=== PATIENT | male | born 1990 | race American Indian/Alaskan Native ===

== ENCOUNTER 2019-03-08 01:41 | Emergency (ER) | payer SELFPAY ==
--- NOTE | 2019-03-08 02:23 | Emergency Department Report ---
ED General Adult HPI - General Chief complaint: Extremity Injury, Upper Stated complaint: LEFT SHOULDER/ARM PAIN Time Seen by Provider: 03/08/19 02:14 Source: patient Mode of arrival: Ambulatory Limitations: No Limitations - History of Present Illness Initial comments: Patient is a 20-year-old -[place] male with history of cervical spine herniation hypertension and obesity who presents with sudden onset left arm pain and numbness radiating A from left posterior lateral neck 2 fingertips patient denies fall injury or trauma states he did not sleep his arm as he describes symptoms as my arm is heaviness and numbness, range of motion is intact, Onset/Timin -: hour(s) Location: upper extremity Radiation: extremity, distal Severity scale (0 -10): 5 Quality: burning, other (tingling 0) Consistency: constant Improves with: none Worsens with: none Associated Symptoms: weakness (left Arm ) Treatments Prior to Arrival: none - Related Data Previous Rx's Medication Instructions Recorded Last Taken Type Cyclobenzaprine [Flexeril] 10 mg PO TID PRN #30 tablet 03/08/19 Unknown Rx Menthol/Camphor [[place] Scooba 1 applicatio TP QID PRN #1 tube 03/08/19 Unknown Rx Ointment] Naproxen [Naprosyn TAB] 500 mg PO BID #30 tablet 03/08/19 Unknown Rx Allergies Allergy/AdvReac Type Severity Reaction Status Date / Time No Known Allergies Allergy Unverified 03/08/19 04:24 ED Review of Systems ROS: Stated complaint: LEFT SHOULDER/ARM PAIN Other details as noted in HPI Constitutional: denies: chills, fever, malaise Eyes: denies: eye pain, eye discharge, vision change ENT: denies: ear pain, throat pain Respiratory: denies: cough, shortness of breath, wheezing Cardiovascular: denies: chest pain, palpitations Endocrine: no symptoms reported Gastrointestinal: denies: abdominal pain, nausea, vomiting, diarrhea Genitourinary: denies: urgency, dysuria Musculoskeletal: myalgia (left arm ). denies: back pain, joint swelling, arthralgia Skin: denies: rash, lesions Neurological: denies: headache, weakness, paresthesias Psychiatric: denies: anxiety, depression Hematological/Lymphatic: denies: easy bleeding, easy bruising ED Past Medical Hx - Past Medical History Previous Medical History?: No Hx Hypertension: Yes Additional medical history: sleep apnea, "fluid build-up" - Surgical History Past Surgical History?: No - Social History Smoking Status: Never Smoker - Medications Home Medications: Home Medications Medication Instructions Recorded Confirmed Last Taken Type Cyclobenzaprine [Flexeril] 10 mg PO TID PRN #30 tablet 03/08/19 Unknown Rx Menthol/Camphor [[place] Sco[place] 1 applicatio TP QID PRN #1 tube 03/08/19 Unknown Rx Ointment] Naproxen [Naprosyn TAB] 500 mg PO BID #30 tablet 03/08/19 Unknown Rx ED Physical Exam - General Limitations: No Limitations General appearance: alert, in no apparent distress - Head Head exam: Present: normocephalic, normal inspection - Eye Eye exam: Present: normal appearance, PERRL, EOMI. Absent: conjunctival injection, nystagmus Pupils: Present: normal accommodation - ENT ENT exam: Present: normal orophraynx, mucous membranes moist, TM's normal bilaterally, normal external ear exam - Neck Neck exam: Present: normal inspection, tenderness (left lateral neck muscle tederness to deep palpation), full ROM. Absent: meningismus, lymphadenopathy, thyromegaly - Expanded Neck Exam Expanded Neck exam: Present: tenderness (no posterior vertebral point tenderness rom intact unrestricted to all george, ). Absent: midline deformity, anterior neck swelling, thyroid mass, carotid bruit, tracheal deviation - Respiratory Respiratory exam: Present: normal lung sounds bilaterally. Absent: respiratory distress, wheezes, rales, rhonchi, stridor, chest wall tenderness, accessory muscle use, prolonged expiratory - Cardiovascular Cardiovascular Exam: Present: regular rate, normal rhythm, normal heart sounds. Absent: systolic murmur, diastolic murmur, rubs, gallop - GI/Abdominal GI/Abdominal exam: Present: soft, normal bowel sounds. Absent: distended, tenderness, bruit, hernia - Rectal Rectal exam: Present: deferred - exam: Present: other (deferred) - Extremities Exam Extremities exam: Present: normal inspection, full ROM, normal capillary refill, other. Absent: tenderness, pedal edema, joint swelling, calf tenderness - Expanded Upper Extremity Exam Left Shoulder Exam: Present: full ROM, other (numbness left anterior shoulder, distal pulses +2 bilat, retail assistant 5/5 right , 4/5 left rom intact ). Absent: tenderness, swelling, abrasion, laceration, ecchymosis, deformity, crepidus, dislocation, erythema, tenderness over AC joint Upper Arm exam: Present: normal inspection, full ROM. Absent: tenderness, swelling, abrasion, laceration, ecchymosis, deformity, crepidus, dislocation, erythema Elbow exam: Present: normal inspection, full ROM. Absent: tenderness, swelling, abrasion, laceration, ecchymosis, deformity, crepidus, dislocation, erythema, effusion, pain w/ pronation/supination, tenderness over radial head Forearm Wrist exam: Present: normal inspection, full ROM. Absent: tenderness, swelling, abrasion, laceration, ecchymosis, deformity, crepidus, dislocation, erythema, tenderness over anatomical snuff box, pain with axial thumb loading Hand Wrist exam: Present: normal inspection, full ROM. Absent: tenderness, swelling, abrasion, laceration, ecchymosis, deformity, crepidus, dislocation, erythema, amputation, nail avulsion, subungual hematoma Neuro motor exam: Present: wrist extension intact, thumb opposition intact, thumb IP flexion intact, thumb adduction intact, fingers 2-5 abduction intact Neurosensory exam: Present: 2-point discrimination, radial nerve intact, ulnar nerve intact, median nerve intact Vascular: Present: normal capillary refill, radial pulse, brachial pulse, ulnar pulse. Absent: vascular compromise, pulse deficit radial art, pulse deficit ulnar art, pulse deficit brachial art - Back Exam Back exam: Present: normal inspection, full ROM. Absent: tenderness, CVA tenderness (R), CVA tenderness (L), muscle spasm, paraspinal tenderness, vertebral tenderness, rash noted - Neurological Exam Neurological exam: Present: alert, oriented X3, CN II-XII intact, normal gait. Absent: motor sensory deficit, reflexes normal - Expanded Neurological Exam Expanded Neurological exam: Absent: memory loss-remote event, memory loss-recent event, tremor Patient oriented to: Present: person, place, time Cranial nerves: EOM's Intact: Normal, Gag Reflex: Normal, Tongue Deviation: Normal, Nystagmus: Normal, Facial Sensation: Normal Cerebellar function: Finger to Nose: Normal, Heel to [place]: Normal, Romberg: Normal Upper motor neuron: Mao Neglect: Normal, Pronator Drift: Normal, Babinski Sign: Normal, Sensory Extinction: Normal Sensory exam: Upper Extremity Light Touch: Abnormal Left, Upper Extremity Pin Prick: Abnormal Left, Upper Extremity Temperature: Abnormal Left, UE 2 Point Discrimination: Abnormal Left, Lower Extremity Light Touch: Normal, Lower Extremity Pin Prick: Normal, Lower Extremity Temperature: Normal, LE 2 Point Discrimination: Normal Motor strength exam: RUE: 5, LUE: 4, RLE: 5, LLE: 5 DTR: bicep (R): 2+, bicep (L): 2+, tricep (R): 2+, tricep (L): 2+, ankle (R): 2+, ankle (L): 2+ Best Eye Response ([place]): (4) open spontaneously Best Motor Response (Adriane): (6) obeys commands Best Verbal Response ([place]): (5) oriented [place] Total: 15 - Psychiatric Psychiatric exam: Present: normal affect, normal mood - Skin Skin exam: Present: warm, dry, intact, normal color. Absent: rash ED Course Vital Signs 03/08/19 01:43 Temperature 98.3 F Pulse Rate 81 Respiratory 18 Rate Blood Pressure 150/89 O2 Sat by Pulse 98 Oximetry ED Medical Decision Making - Radiology Data Radiology results: report reviewed, image reviewed C Spine Xray is normal no fracture no soft tissue abnormality, left shoulder xray normal no fracture no soft tissue abnormality - Medical Decision Making C Spine Xray is normal no fracture no soft tissue abnormality, left shoulder xray normal no fracture no soft tissue abnormality, pt now refuses ct head, states symptoms are improve, follow up exam: rom intact , retail assistant equal, distal pulses intact there is no weakness no deformity, plan: NSAIDs, Muscle relaxants, analgesic balm pt will follow up with orthopedic surgery and neurology in 2-3 days, will return to ed if symptoms worsen or not improving. pt dc'd to self in stable condition at this time. Critical care attestation.: If time is entered above; I have spent that time in minutes in the direct care of this critically ill patient, excluding procedure time. ED Disposition Clinical Impression: Radicular pain in left arm Arm pain Qualifiers: Laterality: left Qualified Code(s): M79.602 - Pain in left arm Disposition: DC-01 TO HOME OR SELFCARE Is pt being admited?: No Does the pt Need Aspirin: No Condition: Stable Instructions: Paresthesia (ED) Prescriptions: Cyclobenzaprine [Flexeril] 10 mg PO TID PRN #30 tablet PRN Reason: Muscle Spasm Naproxen [Naprosyn TAB] 500 mg PO BID #30 tablet Menthol/Camphor [[place] Scooba Ointment] 1 applicatio TP QID PRN #1 tube PRN Reason: pain Referrals: [facility] MD TENA [Primary Care Provider] - 3-5 Days BRITTANY VALDIVIA MD [Staff Physician] - 3-5 Days OLY LUTZ MD [Referring] - 3-5 Days Forms: Work/School Release Form(ED) Time of Disposition: 04:41
--- NOTE | 2019-03-08 02:43 | XRay Report ---
LEFT SHOULDER 3 VIEWS INDICATION / CLINICAL INFORMATION: Pain in left shoulder. COMPARISON: None available. FINDINGS: BONES and JOINT(S): No acute fracture or subluxation. No significant arthritis. SOFT TISSUES: No significant abnormality. ADDITIONAL FINDINGS: None. IMPRESSION: No acute findings. Signer Name: Mejia Kerr MD Signed: 03/08/2019 2:39 AM Workstation Name: [id number]
--- NOTE | 2019-03-08 02:45 | XRay Report ---
CERVICAL SPINE 3 VIEWS INDICATION: Neck pain. COMPARISON: No relevant prior imaging study available. FINDINGS: VERTEBRAE: No acute fracture. Normal alignment. DISC SPACES: No significant abnormality. FACET JOINTS: No significant abnormality. SOFT TISSUES: No significant abnormality. ADDITIONAL FINDINGS: No additional significant findings. IMPRESSION: No acute findings. Signer Name: Mejia Kerr MD Signed: 03/08/2019 2:40 AM Workstation Name: [id number]
[2019-03-08] MEDS ORDERED: DECADRON IM ONE (03:29)
[2019-03-08] MEDS ORDERED: IBUPROFEN PO ONE (03:30)
[2019-03-08] MEDS ORDERED: DECADRON ONE (03:36)
[2019-03-08] MEDS ORDERED: IBUPROFEN ONE (03:36)
[2019-03-08 04:52] VITALS: BP 135/86
== END 2019-03-08 04:53 | disposition home or self-care (01) ==
LOC: ED 01:41
DX: M79.602 Pain in left arm (principal); I10 Essential (primary) hypertension; G47.30 Sleep apnea, unspecified; Z79.899 Other long term (current) drug therapy
CPT/HCPCS: 72040; 73030; 96372; 99283; J1100

== ENCOUNTER 2022-03-16 07:11 | Emergency (ER) | payer SELFPAY ==
--- NOTE | 2022-03-16 08:29 | XRay Report ---
CHEST 2 VIEWS INDICATION / CLINICAL INFORMATION: Chest Pain. COMPARISON: None available. FINDINGS: SUPPORT DEVICES: None. HEART / MEDIASTINUM: No significant abnormality. LUNGS / PLEURA: No significant pulmonary or pleural abnormality. No pneumothorax. ADDITIONAL FINDINGS: No significant additional findings. IMPRESSION: 1. No acute findings. Signer Name: Cordelia Huizar MD Signed: 03/16/2022 8:25 AM Workstation Name: [email or web address]
[2022-03-16 08:43] LABS: Bacteria,Urine 4+ /HPF (Negative); Mucus,Urine 3+ /HPF; RBC,Urine < 1.0 /HPF (0.0-6.0)
[2022-03-16 08:54] LABS: Alanine Aminotransferase 43 units/L (7-56); Albumin 4.6 g/dL (3.9-5); BUN/Creatinine Ratio 10; Blood Urea Nitrogen 11 mg/dL (9-20); Calcium 9.4 mg/dL (8.4-10.2); Hemolysis Index 1
[2022-03-16] MEDS ORDERED: IBUPROFEN 600 MG TAB PO ONE (08:56)
[2022-03-16] MEDS ORDERED: ACETAMINOPHEN 325 MG TAB PO ONE (08:56)
[2022-03-16] MEDS ORDERED: PANTOPRAZOLE 40 MG TAB PO ONE (08:56)
--- NOTE | 2022-03-16 09:02 | Emergency Department Report ---
ED General Adult HPI - General Chief complaint: Chest Pain Stated complaint: Chest wall pain Time Seen by Provider: 03/16/22 08:11 Source: patient, RN notes reviewed, old records reviewed Mode of arrival: Ambulatory Limitations: No Limitations - History of Present Illness Initial comments: The patient was evaluated in the emergency department for symptoms described in the history of present illness. He/she was evaluated in the context of the global COVID-19 pandemic, which necessitated consideration that the patient might be at risk for infection with the virus that causes COVID-19. Institutional protocols and algorithms that pertain to the evaluation of patients at risk for COVID-19 are in a state of rapid change based on information released by regulatory bodies including the CDC and federal and state organizations. These policies and algorithms were followed during the patient's care in the emergency department. Please note that these policies, procedures and recommendations changed on a rapid basis. This is a 31-year-old gentleman who is right-hand dominant, with a history of body mass index of 32.5, possible hypertension and possible reflux/GERD, and possible cervical radiculopathy. He presents to the department today with a complaint of left-sided chest wall pain which is present since last night. He states the pain does not radiate anywhere. The pain does not radiate to the back, arms or neck. He denies vomiting, diaphoresis and exertional shortness of breath. He denies travel, surgery, immobilization, DVT and pulmonary embolism risk factors. He indicates no family history of DVT, pulmonary embolism, CAD, or [place]. His chest wall pain is aching, and increases with palpation and decreases with rest. The patient reports he has not taken anything for pain. The patient denies recreational drug use, tobacco consumption, or alcohol consumption -: days(s) Location: chest Radiation: non-radiation Severity scale (0 -10): 8 Consistency: other Improves with: other Worsens with: other Associated Symptoms: denies other symptoms - Related Data Previous Rx's Medication Instructions Recorded Last Taken Type Acetaminophen [Non-Aspirin Extra 500 mg PO Q6HR PRN #30 tablet 03/16/22 Unknown Rx Strength] Menthol/Camphor [[place] 1 applicatio TP QID PRN #1 tube 03/16/22 Unknown Rx Ointment] Naproxen [Naprosyn TAB] 500 mg PO BID #30 tablet 03/16/22 Unknown Rx Sulfamethoxazole/Trimethoprim 1 each PO BID #10 tab 03/16/22 Unknown Rx [Bactrim 400-80 mg Tablet] Allergies Allergy/AdvReac Type Severity Reaction Status Date / Time No Known Allergies Allergy Unverified 03/08/19 04:24 ED Review of Systems ROS: Stated complaint: CHEST PAIN/NO FEELING IN LT ARM Other details as noted in HPI Comment: All other systems reviewed and negative Cardiovascular: chest pain ED Past Medical Hx - Past Medical History Hx Hypertension: Yes Additional medical history: sleep apnea, "fluid build-up" - Social History Smoking Status: Never Smoker - Medications Home Medications: Home Medications Medication Instructions Recorded Confirmed Last Taken Type Acetaminophen [Non-Aspirin Extra 500 mg PO Q6HR PRN #30 tablet 03/16/22 Unknown Rx Strength] Menthol/Camphor [[place] 1 applicatio TP QID PRN #1 tube 03/16/22 Unknown Rx Ointment] Naproxen [Naprosyn TAB] 500 mg PO BID #30 tablet 03/16/22 Unknown Rx Sulfamethoxazole/Trimethoprim 1 each PO BID #10 tab 03/16/22 Unknown Rx [Bactrim 400-80 mg Tablet] ED Physical Exam - General Limitations: No Limitations General appearance: alert, in no apparent distress, obese - Head Head exam: Present: atraumatic, normocephalic - Eye Eye exam: Present: normal appearance, EOMI. Absent: nystagmus - ENT ENT exam: Present: normal exam, normal orophraynx, mucous membranes moist, normal external ear exam - Neck Neck exam: Present: normal inspection, full ROM. Absent: tenderness, meningismus - Respiratory Respiratory exam: Present: normal lung sounds bilaterally, chest wall tenderness. Absent: respiratory distress, wheezes, rales, rhonchi, stridor, decreased breath sounds - Cardiovascular Cardiovascular Exam: Present: regular rate, normal rhythm, normal heart sounds. Absent: bradycardia, tachycardia, irregular rhythm, systolic murmur, diastolic murmur, rubs, gallop - GI/Abdominal GI/Abdominal exam: Present: soft. Absent: distended, tenderness, guarding, rebound, rigid, pulsatile mass - Rectal Rectal exam: Present: deferred - Extremities Exam Extremities exam: Present: normal inspection, full ROM, normal capillary refill, other (2+ pulses noted in the bilateral upper and lower extremities. There is no palpable cord. negative Homans sign. Muscular compartments are soft. The pelvis is stable.). Absent: pedal edema, calf tenderness - Back Exam Back exam: Present: normal inspection. Absent: tenderness, CVA tenderness (R), CVA tenderness (L), paraspinal tenderness, vertebral tenderness - Neurological Exam Neurological exam: Present: alert, oriented X3, normal gait, reflexes normal, other (No facial droop. Tongue midline. Extraocular movements intact bilaterally. Facial sensation intact to light touch in V1, V2, V3 distribution bilaterally. 5 and a 5 strength in 4 extremities. Sensation intact to light touch in 4 extremities.). Absent: motor sensory deficit - Psychiatric Psychiatric exam: Present: normal affect, normal mood - Skin Skin exam: Present: warm, dry, intact, normal color. Absent: rash ED Course Vital Signs 03/16/22 03/16/22 03/16/22 07:46 10:42 10:59 Temperature 98.9 F Pulse Rate 80 64 Respiratory 14 18 Rate Blood Pressure 133/92 111/63 [Right] O2 Sat by Pulse 95 97 Oximetry O2 Sat by Pulse 100 Oximetry [ Digit-Finger] - Reevaluation(s) Reevaluation #1: 03/16/22 10:40 Patient is seen and examined. He is sleeping and in no acute distress. His laboratory studies are unremarkable. For unclear reasons, a urinalysis was ordered prior to my personal evaluation. It is asymptomatic with bacteriuria. Patient may be discharged with supportive care. Would not initiate antibiotics unless the patient develops irritative or obstructive urinary symptoms - Pulse Oximetry Interpretation Digit-Finger Initial Pulse Oximetry Readin O2 Sat by Pulse Oximetry: 100 Actions Taken: none ED Medical Decision Making - Lab Data Result diagrams: 03/16/22 08:02 03/16/22 08:02 Vital Signs 03/16/22 07:46 Temperature 98.9 F Pulse Rate 80 Respiratory 14 Rate Blood Pressure 133/92 [Right] O2 Sat by Pulse 95 Oximetry Lab Results 03/16/22 03/16/22 03/16/22 Range/Units 08:02 08: Unknown WBC 6.8 (4.5-11.0) K/mm3 RBC 4.40 (3.65-5.03) M/mm3 Hgb 13.1 (11.8-15.2) gm/dl Hct 39.1 (35.5-45.6) % MCV 89 (84-94) fl MCH 30 (28-32) pg MCHC 34 (32-34) % RDW 14.9 (13.2-15.2) % Plt Count 290 (140-440) K/mm3 Lymph % (Auto) 29.3 (13.4-35.0) % [place] % (Auto) 12.4 H (0.0-7.3) % Eos % (Auto) 2.7 (0.0-4.3) % Baso % (Auto) 0.9 (0.0-1.8) % Lymph # (Auto) 2.0 (1.2-5.4) K/mm3 [place] # (Auto) 0.8 (0.0-0.8) K/mm3 Eos # (Auto) 0.2 (0.0-0.4) K/mm3 Baso # (Auto) 0.1 (0.0-0.1) K/mm3 Add Manual Diff Complete Seg Neutrophils % 54.7 (40.0-70.0) % Seg Neutrophils # 3.7 (1.8-7.7) K/mm3 Sodium 141 (137-145) mmol/L Potassium 3.7 (3.6-5.0) mmol/L Chloride 104.9 (98-107) mmol/L Carbon Dioxide 24 (22-30) mmol/L Anion Gap 16 mmol/L BUN 11 (9-20) mg/dL Creatinine 1.1 (0.8-1.3) mg/dL Estimated GFR > 60 ml/min BUN/Creatinine Ratio 10 % Glucose 96 (75-100) mg/dL Calcium 9.4 (8.4-10.2) mg/dL Total Bilirubin 0.30 (0.1-1.2) mg/dL AST 31 (5-40) units/L ALT 43 (7-56) units/L Alkaline Phosphatase 70 (35-129) units/L Troponin T < 0.010 (0.00-0.029) ng/mL Total Protein 7.4 (6.3-8.2) g/dL Albumin 4.6 (3.9-5) g/dL Albumin/Globulin Ratio 1.6 % Urine Color Yellow (Yellow) Urine Turbidity Hazy (Clear) Urine pH 6.0 (5.0-7.0) Ur Specific [place] 1.020 (1.003-1.030) Urine Protein 30 mg/dl (Negative) mg/dL Urine Glucose (UA) Negative (Negative) mg/dL Urine Ketones 1+ (Negative) mg/dL Urine Blood Negative (Negative) Urine Nitrite Negative (Negative) Ur Reducing Substances Not Reportable Urine Bilirubin 1+ (Negative) Urine Ictotest Negative (Negative) Urine Urobilinogen 4.0 (<2.0) mg/dL Ur Leukocyte Esterase 1.0 (Negative) Urine WBC (Auto) 3.0 (0.0-6.0) /HPF Urine RBC (Auto) < 1.0 (0.0-6.0) /HPF U Epithel Cells (Auto) 1.0 (0-13.0) /HPF Urine Bacteria (Auto) 4+ (Negative) /HPF Urine Mucus 3+ /HPF - EKG Data -: EKG Interpreted by Ct EKG shows normal: sinus rhythm Rate: normal - EKG Data When compared to previous EKG there are: previous EKG unavailable 03/16/22 08:58 The EKG is interpreted at 08: 00 Sinus rhythm, 72 bpm. Normal axis, normal intervals, normal P wave axis. This is an unremarkable EKG. This is not a STEMI - Radiology Data Radiology results: pending, report reviewed, image reviewed CHEST 2 VIEWS INDICATION / CLINICAL INFORMATION: Chest Pain. COMPARISON: None available. FINDINGS: SUPPORT DEVICES: None. HEART / MEDIASTINUM: No significant abnormality. LUNGS / PLEURA: No significant pulmonary or pleural abnormality. No pneumothorax. ADDITIONAL FINDINGS: No significant additional findings. IMPRESSION: 1. No acute findings. Signer Name: Cordelia Huizar MD Signed: 03/16/2022 7:25 AM Workstation Name: [id number] - Medical Decision Making Differential diagnosis, including but not limited to: Costochondritis, cervical radiculopathy, pneumothorax Assessment and plan: 31-year-old gentleman, who is not currently tachycardic, t achypneic or hypoxic, who denies DVT and pulmonary embolism risk factors, who is low risk by Wells criteria for pulmonary embolism, EKG unremarkable, troponin negative x1 in the context of 1 day of symptoms; pain present for greater than 8 hours, reproducible, troponin negative x1, as per the [employer] clinical policy, acute myocardial infarction is ruled out. Patient also PERC negative. Patient has equal pulses in the upper and lower extremities, no pulsatile abdominal mass, and an unremarkable x-ray of the chest, therefore, aortic disease is very unlikely. Patient at low risk for major adverse cardiac event as per heart score. Patient has reproducible chest wall pain and tenderness. His chest x-ray is unremarkable. His laboratory studies are unremarkable. Patient makes no complaint of pain radiating down his left upper extremity to myself. He has an unremarkable and benign neurologic examination, with no spinal tenderness or step-offs. Prior charts indicate that this patient may have a history of cervical radiculopathy. Weightbearing as tolerated, Tylenol, Motrin, weight loss, physical therapy, outpatient follow-up. He is medicated appropriately for his symptoms. Return precautions are reviewed. All questions answered Critical care attestation.: If time is entered above; I have spent that time in minutes in the direct care of this critically ill patient, excluding procedure time. ED Disposition Clinical Impression: Chest wall pain, Bacteriuria Disposition: 01 HOME / SELF CARE / HOMELESS Is pt being admited?: No Does the pt Need Aspirin: No Condition: Good Instructions: Cervical Radiculopathy, Costochondritis Additional Instructions: Rest, avoid heavy lifting, and strenuous physical activities. Alternate ice packs and heat packs as needed for physical pain. Follow-up with a primary care doctor within the next 7 to 10 days. Recommend exercise as tolerated, weight loss as tolerated, avoid consumption of alcohol, tobacco, heavy and spicy foods. Take the pain medication as needed and directed. Patient most likely has costochondritis, which is irritation/inflammation of the muscles and contact the tissue of the chest wall, with possible superimposed cervical radiculopathy, which refers to pinched nerve in the neck. Physical therapy may assist with this, patient should follow-up with a primary care doctor for referral to outpatient physical therapy. Patient may also benefit from complementary therapy, such as massage, and/or acupuncture. May take the prescribed pain medications as needed and directed. Please return to the emergency room right away with new pain, worsened pain, ella ration of pain, projectile vomiting, change in mental status, confusion, inability tolerate liquid feeds, new, worsened or different symptoms not present on the initial emergency room evaluation Urinalysis demonstrated bacteria in the urine, without corroborating urinary symptoms. At this point in time, this constitutes asymptomatic bacteriuria. If the patient develops pain with urination, urinary frequency, urinary hesitancy, please take the antibiotics as directed. If patient does not develop any urinary symptoms and does not have any genital or testicular pain, antibiotics are not necessary, and the patient does not need to fill the Bactrim/antibiotic prescription. In general, the patient should always practice safe sex practices with a condom with partner Prescriptions: Sulfamethoxazole/Trimethoprim [Bactrim 400-80 mg Tablet] 1 each PO BID #10 tab Naproxen [Naprosyn TAB] 500 mg PO BID #30 tablet Acetaminophen [Non-Aspirin Extra Strength] 500 mg PO Q6HR PRN #30 tablet PRN Reason: Pain , Severe (7-10) Menthol/Camphor [[place] Ointment] 1 applicatio TP QID PRN #1 tube PRN Reason: pain Referrals: [facility] [Provider Group] - 3-5 Days Forms: Work/School Release Form(ED) Heart Score - HEART Score History: Slightly suspicious EKG: Normal Age: < 45 Risk factors: 1-2 risk factors Troponin: < normal limit HEART Score: 1 - EKG Read Time Time EKG Completed: 08:00 EKG Read Time: 08:10 - Critical Actions Critical Actions: 0-3 pts:0.9-1.7%risk of adverse cardiac event.Candidate for discharge
[2022-03-16 09:41] LABS: Bilirubin,Urine 1+ (Negative); Color,Urine Yellow (Yellow)
[2022-03-16 09:45] LABS: Blood,Urine Negative (Negative)
[2022-03-16 09:50] LABS: Ictotest,Urine Negative (Negative)
[2022-03-16 10:03] LABS: Eosinophils % (Auto) 2.7 % (0.0-4.3); Hematocrit 39.1 % (35.5-45.6); Hemoglobin 13.1 gm/dl (11.8-15.2); Lymphocytes % (Auto) 29.3 % (13.4-35.0); Mean Corpuscular HGB Conc 34 % (32-34); Mean Corpuscular Volume 89 fl (84-94); Monocytes % (Auto) 12.4 % (0.0-7.3); Platelet Count 290 K/mm3 (140-440); Red Cell Distribution Width 14.9 % (13.2-15.2)
[2022-03-16 10:04] LABS: Basophils # (Auto) 0.1 K/mm3 (0.0-0.1); Basophils % (Auto) 0.9 % (0.0-1.8); Eosinophils # (Auto) 0.2 K/mm3 (0.0-0.4); Monocytes # (Auto) 0.8 K/mm3 (0.0-0.8)
[2022-03-16 11:00] VITALS: BP 111/63
--- NOTE | 2022-03-18 18:10 | Electrocardiograph Report ---
[facility] Test Date: 2022-03-16 Test Time: 07:50:43 Pat Name: MANDEEP MORENO Department: Room: Gender: M It Business Analyst: SIGIFREDO : 1990 Requested By: RAFFY CAROLINA Order Number: [id number] Reading MD: Mike Barber Measurements Intervals [place] Rate: 72 P: 56 ND: 165 QRS: 19 QRSD: 83 T: 32 QT: 381 QTc: 417 Interpretive Statements Sinus rhythm No previous ECG available for comparison Electronically Signed On 03-18-2022 18:10:01 EDT by Mike Barber
== END 2022-03-16 11:00 | disposition home or self-care (01) ==
LOC: ED 07:11
DX: R07.89 Other chest pain (principal); R82.71 Bacteriuria; I10 Essential (primary) hypertension; Z79.899 Other long term (current) drug therapy
CPT/HCPCS: 36415; 71046; 80053; 81001; 84484; 85025; 93005; 99284